=== PATIENT | female | born 1960 | race Caucasian/White ===

== ENCOUNTER → 2021-07-16 | Day surgery (SDC) | payer OTHER ==
[~2021-07-16] VITALS: Ht 157.5 cm; Wt 56.7 kg
[~2021-07-16] MED LIST: ASCORBIC ACID500 MG PO; DAILY VALUE1 EACH PO; NORCO 5-325 TA1 EACH PO; VITAMIN B122500 MCG PO; VITAMIN D325 MC1 PO
[2021-07-16 07:22] LABS: HCT 40.5 % (37.0-47.0); HGB 13.9 g/dl (12.5-16.0); MCH 31.7 pg (25.0-31.0); MCHC 34.3 g/dL (32.0-36.0); MCV 92.3 fL (78.0-100.0); MPV 10.3 fL (6.0-9.5); RBC 4.39 M/uL (4.20-5.40); RDW 11.9 % (11.5-14.0); WBC 6.2 K/uL (4.0-10.5)
[2021-07-16 07:41] LABS: BILIRUBIN - TOTAL 0.5 mg/dL (0.2-1.0); BUN/CREAT RATIO (CALC) 37.1 RATIO; CREATININE 0.62 mg/dL (0.51-0.95); GLOBULIN (CALCULATION) 3.6 g/dL; POTASSIUM 3.9 mmol/L (3.5-5.1); TOTAL PROTEIN 7.6 g/dL (6.4-8.2)
== END | disposition home or self-care (01) ==
LOC: FAS 06:49
PROVIDERS: Surgery
DX: D17.1 Benign lipomatous neoplasm of skin and subcutaneous tissue of trunk (principal); Z90.710 Acquired absence of both cervix and uterus; Z79.899 Other long term (current) drug therapy
CPT/HCPCS: 36415; 80053; J1885; J2250; J2405; J2704; J3010; J7120